=== PATIENT | male | born 1980 | race Caucasian/White ===

== ENCOUNTER 2021-05-05 15:42 | Emergency (ER) | payer SELFPAY ==
[2021-05-05 16:06] VITALS: BP 111/72; PULSE 69; RESP 18; TEMP 36.7; O2SAT 100; BMI 24.2
--- NOTE | 2021-05-05 16:14 | XRR_ITS ---
PROCEDURE INFORMATION: Exam: XR Right Tibia and Fibula Exam date and time: 05/05/2021 4:14 PM Age: 40 years old Clinical indication: Injury or trauma; Other: Laceration; Work related; Lower leg; Right; Foreign body involvement not specified; Injury date: 05/05/21; Additional info: Laceration/trauma TECHNIQUE: Imaging protocol: XR Right tibia and fibula. Views: 2 views. COMPARISON: No relevant prior studies available. FINDINGS: Bones/joints: Normal. Soft tissues: Normal. XR/XR tibia fibula RT 2V [id number] IMPRESSION: No acute findings.
--- NOTE | 2021-05-05 16:23 | W.ED.WOUNDLC ---
Documented by User: SHIRLEY Lopez 05/06/21 07:05 HPI - Wound/Laceration General: Chief Complaint: Extremity Injury, Lower Stated Complaint: RIGHT LEG LAC Time Seen by Provider: 05/05/21 16:15 Source: patient Mode of arrival: wheelchair Limitations: no limitations History of Present Illness: HPI narrative: Patient is a 40-year-old male presents to ED today for evaluation of a right lower leg laceration that he sustained after cutting it on a metal gate panel. Patient was apparently seen at urgent care and told to come to the ED for further evaluation. Patient states his tetanus is up-to-date. Onset (ago): hour(s) Extremity Location: Right: lower leg Place: home Patient tetanus UTD: Yes Context: accidental Associated symptoms: Reports no associated symptoms Treatments prior to arrival: bandage Review of Systems Musc: Reports: extremity pain (below R knee); Denies: extremity swelling Skin/Breast: Reports: other (laceration R LE) Neuro: Denies: headache(s), numbness in extremities or sensory changes Physical Exam Const: COMMON NORMALS: no acute distress, average body habitus, patient oriented x3, no limitations, healthy appearing, alert and well nourished ORIENTATION/CONSCIOUSNESS: Yes awake, Yes oriented to person, Yes oriented to place and Yes oriented to time Extremity: GENERAL: Yes normal exam except as noted Neuro: COMMON NORMALS: patient oriented x3, moves all extremities, no focal motor deficits and no sensory deficits noted SENSORIUM/ORIENTATION: Yes alert, Yes oriented to person, Yes oriented to place and Yes oriented to time Skin: NARRATIVE SKIN EXAM: see extremity assessment for pertinent skin findings Procedures Laceration Laceration 1: Site: lower extremity Side (If applicable): right Size (cm): 3.0 Description: linear Depth: simple, single layer Local Anesthetic: lidocaine 1% and with epi Amount of anesthesia used (mL): 3.0 Pre-repair: wound explored and irrigated extensively Skin layer closed with: nylon Size (cm): 4-0 Number of sutures: 6 Technique: simple, interrupted Course Vital Signs: Vital signs: Vital Signs Temperature 98.1 F 05/05/21 16:06 Pulse Rate 65 05/05/21 16:43 Respiratory Rate 12 05/05/21 16:43 Blood Pressure 124/87 05/05/21 16:43 Pulse Oximetry 95 05/05/21 16:43 MDM - Wound/Laceration Imaging Data^: XR R tib/fib: Radiologist's impression: [address] [place] [address] XRay Report Signed Patient: Quincy Boland Unit #: [id number] : [id number] Age/Sex: 40 / M ADM Date: 05/05/21 Loc: ER Room/Bed: Attending Dr: Ordering Provider/Ordering MD: Coreen Ly Date of Service: 05/05/21 Procedure(s): XR tibia fibula RT 2V [id number] Accession Number(s): [id number] Report Number: [id number] PROCEDURE INFORMATION: Exam: XR Right Tibia and Fibula Exam date and time: 05/05/2021 4:14 PM Age: 40 years old Clinical indication: Injury or trauma; Other: Laceration; Work related; Lower leg; Right; Foreign body involvement not specified; Injury date: 05/05/21; Additional info: Laceration/trauma TECHNIQUE: Imaging protocol: XR Right tibia and fibula. Views: 2 views. COMPARISON: No relevant prior studies available. FINDINGS: Bones/joints: Normal. Soft tissues: Normal. XR/XR tibia fibula RT 2V [id number] IMPRESSION: No acute findings. Dictated By: Chad Prater Signed By: Chad Prater Signed Date/Time: 05/05/211716 DD/ 13 Discharge Plan Discharge Patient Disposition: Home Clinical Impression: Laceration of leg, right Qualifiers: Encounter type: initial encounter Qualified Code(s): S81.811A - Laceration without foreign body, right lower leg, initial encounter Condition: Stable Prescriptions: New cephalexin 500 mg capsule 500 mg PO Q6H 7 Days Qty: 28 RF: 0 Discharge Orders: Discharge ED (Routine); Ordered 05/05/21 Ordered By: Coreen Ly Patient Instructions: Suture Care (ED), Laceration (ED) Activity Restrictions/Additional Instructions: Keep wound/laceration clean with warm soap and water twice daily. Monitor for signs of infection such as redness, swelling, increased pain, or drainage. Please seek medical re-evaluation if these occur. If you received sutures today these will need to be removed (unless you were told by the provider that they are absorbable). The provider should have discussed with you the length of time until removal-7 TO 10 DAYS. You may return to the emergency department for this service. If your wound was closed with Steri-Strips or glue/adhesive these will fall off within the next week or so. Coding Level of Care Code ED Netsuite Consultant for Chg Fwd Exam Expanded Problem Focused Documented by User: Bob Willett DO 05/06/21 07:13 HPI - Wound/Laceration General: Chief Complaint: Extremity Injury, Lower Stated Complaint: RIGHT LEG LAC Time Seen by Provider: 05/05/21 16:15 History of Present Illness: HPI narrative: 40-year-old male reviewed case with PA. Also reviewed the x-ray. Patient examined her note reviewed agree with assessment and plan. Patient related to me that he was working on a roof and cut just below his right knee with the edge of a metal panel. No other injuries. Place: work Physical Exam Extremity: OTHER: Proximately 3 inch laceration below the right patella. It is through the dermis but does not disrupt the subcu fascia. There is no evidence of involvement of the patellar tendon or bone. X-ray reviewed and is unremarkable. Vascular intact with no deficits in the extremity affected. Course Vital Signs: Vital signs: Vital Signs Temperature 98.1 F 05/05/21 16:06 Pulse Rate 65 05/05/21 16:43 Respiratory Rate 12 05/05/21 16:43 Blood Pressure 124/87 05/05/21 16:43 Pulse Oximetry 95 05/05/21 16:43 MDM - Wound/Laceration MDM Narrative: Medical decision making narrative: X-ray reviewed patient examined see above agree with assessment and plan follow-up with primary care for removal of sutures in 10 to 14 days wound care instructions given by PA. Discharge Plan Discharge Patient Disposition: Home Clinical Impression: Laceration of leg, right Qualifiers: Encounter type: initial encounter Qualified Code(s): S81.811A - Laceration without foreign body, right lower leg, initial encounter Condition: Stable Prescriptions: New cephalexin 500 mg capsule 500 mg PO Q6H 7 Days Qty: 28 RF: 0 Discharge Orders: Discharge ED (Routine); Ordered 05/05/21 Ordered By: Coreen Ly Patient Instructions: Suture Care (ED), Laceration (ED) Activity Restrictions/Additional Instructions: Keep wound/laceration clean with warm soap and water twice daily. Monitor for signs of infection such as redness, swelling, increased pain, or drainage. Please seek medical re-evaluation if these occur. If you received sutures today these will need to be removed (unless you were told by the provider that they are absorbable). The provider should have discussed with you the length of time until removal-7 TO 10 DAYS. You may return to the emergency department for this service. If your wound was closed with Steri-Strips or glue/adhesive these will fall off within the next week or so. Coding Level of Care Code ED Netsuite Consultant for Josesito Fwfabiola Exam Expanded Problem Focused
[2021-05-05 16:43] VITALS: BP 124/87; PULSE 65; RESP 12; O2SAT 95
--- NOTE | 2021-05-05 17:28 | PC.NURSE ---
patient up to date on tetnus, wound repaired, no bleeding at this time, cms intact
== END 2021-05-05 17:30 | disposition home or self-care (01) ==
PROVIDERS: Emergency Provider Physician Assistant
DX: S81.811A Laceration without foreign body, right lower leg, initial encounter (principal); W26.8XXA Contact with other sharp object(s), not elsewhere classified, initial encounter
CPT/HCPCS: 12002; 73590; 99282